=== PATIENT | female | born 1985 | race African-American/Black ===

== ENCOUNTER 2020-07-26 20:39 | Emergency (ER) | payer OTHER, SELFPAY ==
[2020-07-26 20:51] VITALS: BP 110/66; PULSE 71; RESP 18; TEMP 36.6; O2SAT 97; BMI 23.2
--- NOTE | 2020-07-26 20:58 | ED.PREGNANCY ---
HPI - General Chief complaint: Vaginal Bleeding Stated complaint: 5wks and spotting Time Seen by Provider: 07/26/20 20:52 Source: patient Mode of arrival: Ambulatory Limitations: no limitations History of Present Illness HPI Narrative: Patient is a 34-year-old female presenting with vaginal spotting at about 5 weeks. She has her last menstrual cycle was June 17 this evening she noted some bright red spotting she has needed to change a panty liner but it has not been significantly saturated. She has no cramping denies any nausea is only complaining of fatigue. No prior issues with she has had previous abortions. MD Complaint: vaginal bleeding Date of Last Menstrual Period: 06/17/20 Related Data Allergies Allergy/AdvReac Type Severity Reaction Status Date / Time No Known Drug Allergies Allergy Verified 07/26/20 20:57 Review of Systems Review of Systems Narrative: GENERAL: Denies chills, fatigue, malaise, fever, sweats, travel HEENT: Denies sinus pain, ear pain, sore throat, difficulty swallowing, neck pain RESPIRATORY: Denies dyspnea, cough, wheezing, hemoptysis, sputum. CARDIOVASCULAR: Denies chest pain, palpitations, orthopnea, edema GASTROINTESTINAL: Denies nausea, vomiting, abdominal pain, diarrhea, constipation, melena. : Denies dysuria, frequency, incontinence, hematuria, urinary retention, flank pain. COURT ADVOCATE: see HPI MUSCULOSKELETAL: Denies weakness, joint pain, or bony pain SKIN: No rash, no erythema, no pruritus NEUROLOGIC: Denies weakness, dizziness, headache, numbness, change in speech, confusion PSYCHIATRIC: No concerning psychosocial issues. 12 point review of systems is negative except for those stated above and HPI PMFSH - Past Medical History Medical history: Reports no medical history Date of Last Menstrual Period: 06/17/20 Exam Initial Vital Signs Initial Vital Signs: Vital Signs Temperature 97.8 F 07/26/20 20:51 Pulse Rate 71 07/26/20 20:51 Respiratory Rate 18 07/26/20 20:51 Blood Pressure 110/66 07/26/20 20:51 Pulse Oximetry 97 07/26/20 20:51 GENERAL: Well-appearing, well-nourished and in no acute distress. HEENT: Head atraumatic,EOMI, pupils reactive, face symmetric, moist mucous membranes CARDIOVASCULAR: Regular rate and rhythm without murmurs, rubs or gallops. RESPIRATORY: Breath sounds equal bilaterally, no wheezes rales or rhonchi. ABDOMEN: Soft, nontender. Normoactive bowel sounds all 4 quadrants. No guarding or rebound. : No CVA tenderness EXTREMITIES: Normal range of motion, no clubbing or edema. Neurovascularly intact NEUROLOGICAL: Alert and oriented x4.Normal gait and speech. SKIN: Warm, dry, no laceration, no petechiae, no rashes or lesions. Course Orders Ordered: ED Orders 07/26/20 20:48 Ictotest Urine Stat Urine Microscopic Stat 07/26/20 20:50 Complete Blood Count AUTO DIFF Stat Comprehensive Metabolic Panel Stat HCG Quantitative /Beta subunit Stat 07/26/20 20:59 US pelvic complete Stat Vital Signs Vital signs: Vital Signs - 8 hr 07/26/20 20:51 07/26/20 22:16 Temperature 97.8 F Pulse Rate 71 58 L Respiratory Rate 18 15 Blood Pressure 110/66 98/65 Pulse Oximetry 97 96 MDM - OB/Uterine Contractions Lab Data Attestation: I reviewed the patient's lab results. Result diagrams: 07/26/20 20:50 07/26/20 20:50 Labs: Lab Results 07/26/20 07/26/20 07/26/20 Range/Units 20:48 20:50 20:50 WBC 7.3 (4.5-11.0) X10^3/uL RBC 4.16 (4.0-5.2) X10^6/uL Hgb 13.2 (12.0-16.0) g/dL Hct 38.5 (36-46) % MCV 92.6 (80-100) fL MCH 31.7 (26-34) PG MCHC 34.2 (30-36) % RDW 12.5 (11.6-14.8) % Plt Count 238 (150-400) X10^3/uL Neut % (Auto) 44.4 L (50-75) % Lymph % (Auto) 40.4 H (25-40) % [place] % (Auto) 6.3 (3-14) % Eos % (Auto) 8.1 H (2-4) % Baso % (Auto) 0.8 (0-2) % Neut # (Auto) 3200 (8346-6090) /uL Lymph # (Auto) 2900 (6689-0831) /uL [place] # (Auto) 500 (0-900) /uL Eos # (Auto) 600 H (0-450) /uL Baso # (Auto) 100 (0-100) /uL Sodium 138 (137-145) mmol/L Potassium 3.8 (3.4-5.1) mmol/L Chloride 108 H (98-107) mmol/L Carbon Dioxide 24 (22-32) mmol/L BUN 17 (7-17) mg/dL Creatinine 1.17 H (0.52-1.04) mg/dL Estimated GFR 52.3 L (>60) mL/min BUN/Creatinine Ratio 14.5 (6-22) Glucose 93 (70-100) mg/dL Calcium 9.4 (8.4-10.2) mg/dL Total Bilirubin 0.3 (0.2-1.3) mg/dL AST 19 (14-36) IU/L ALT 15 (<35) IU/L Alkaline Phosphatase 46 (38-126) U/L Total Protein 7.4 (6.3-8.2) g/dL Albumin 4.5 (3.5-5.0) g/dL Globulin 2.9 (1.7-4.1) g/dL Albumin/Globulin Ratio 1.6 (1.0-2.8) HCG, Quant 267.5 mIU/mL Ur Bilirubin Confirm Negative (Negative) Urine RBC 0-1/hpf (0-5/HPF) Urine WBC 1-5/hpf (0-5/HPF) Ur Squamous Epith Cells 1-5 /hpf (0-5/HPF) Urine Bacteria Few (2-10) H (None) Ur Culture Indicated? Cult not indicated Point of Care Testing Test Results Positive Urine Dip Bedside Urine Glucose Negative Bedside Urine Bilirubin + 1 Bedside Urine Ketone - Negative Urine Specific [place] 1.030 Bedside Urine Occult Blood +++ Bedside Urine pH 6.0 Bedside Urine Protein - Negative Bedside Urine Urobilinogen - Negative Bedside Urine Nitrite - Negative Bedside Urine Leukocytes - Negative Esterase Imaging Data US - OB: Radiologist's Impression: ROCEDURE: US PELVIC COMPLETE INDICATIONS: SPOTTING; 5 WEEKS TECHNIQUE: Real-time scanning was performed of the pelvic organs, with image documentation. Additional endovaginal scanning was necessary due to incomplete visualization of the adnexal and endometrial structures by transabdominal scanning. COMPARISON: None. FINDINGS: Uterus: Uterus is normal in size at 9.9 x 5.5 x 4.8 cm. No fibroids seen. The endometrium measures 10 mm in combined thickness. No intrauterine gestation seen. Ovaries: Within normal limits. No cystic lesion seen. Right ovary measures 3.3 x 1.7 x 1.6 cm. Left ovary measures 2.7 x 2.2 x 1.1 cm. Other: No pathologic free abdominal or pelvic fluid. IMPRESSION: 1. of uncertain location. No intrauterine gestational sac. -Recommend trending serum beta HCG. If clinically indicated follow-up pelvic ultrasound. 2. Ovaries appear normal. No cystic lesion. Dictated by: Madhu Camarillo M.D. on 07/26/2020 at 21:58 MDM Narrative Medical decision making narrative: The patient has no pain at this time. HCG is low at 267 with ultrasound that does not confirm IUP. Concern for probable miscarriage. Low concern for ectopic however I did discuss this with her at. She has already established some care with OBGYN in [place] in she has had blood work with him. At this time I recommend she call them tomorrow to schedule follow-up this week. Discharge Plan Departure Patient Disposition: Home Clinical Impression: Threatened Instructions: Threatened Miscarriage Activity Restrictions/Additional Instructions: QHB=416.5 *You have been diagnosed with threatened miscarriage *What to do: At this time ultrasound does not show an hCG level is concerning low. You need to have HCG rechecked in 48 hours by your OBGYN, along with follow-up ultrasound *Continue to take medications as directed *Follow up with your primary care provider in 2-3 days *Return to ER if you should have increasing vaginal bleeding more than a 2 super pads an hour, increased pain, dizziness, passing out or any new, worsening or concerning symptoms
[2020-07-26 21:11] LABS: Add Manual Diff / Slide Review NO; Basophils Absolute Auto 100 /uL (0-100); Basophils Percent Auto 0.8 % (0-2); Eosinophils Absolute Auto 600 /uL (0-450); Eosinophils Percent Auto 8.1 % (2-4); Hematocrit 38.5 % (36-46); Hemoglobin 13.2 g/dL (12.0-16.0); Lymphocytes Absolute Auto 2900 /uL (1100-4500); Lymphocytes Percent Auto 40.4 % (25-40); Mean Corpuscular HGB Conc 34.2 % (30-36); Mean Corpuscular Hemoglobin 31.7 PG (26-34); Mean Corpuscular Volume 92.6 fL (80-100); Monocytes Absolute Auto 500 /uL (0-900); Monocytes Percent Auto 6.3 % (3-14); Neutrophils Absolute Auto 3200 /uL (1500-7000); Neutrophils Percent Auto 44.4 % (50-75); Platelet Count 238 X10^3/uL (150-400); Red Blood Cell Count 4.16 X10^6/uL (4.0-5.2); Red Cell Distribution Width 12.5 % (11.6-14.8); White Blood Cell Count 7.3 X10^3/uL (4.5-11.0)
[2020-07-26 21:12] LABS: Alanine Aminotransferase 15 IU/L (<35); Albumin 4.5 g/dL (3.5-5.0); Albumin Globulin Ratio 1.6 (1.0-2.8); Alkaline Phosphatase 46 U/L (38-126); Aspartate Aminotransferase 19 IU/L (14-36); BUN Creatinine Ratio 14.5 (6-22); Bilirubin Total 0.3 mg/dL (0.2-1.3); Blood Urea Nitrogen 17 mg/dL (7-17); Calcium 9.4 mg/dL (8.4-10.2); Carbon Dioxide 24 mmol/L (22-32); Chloride 108 mmol/L (98-107); Estimated Glomerular Filt Rate 52.3 mL/min (>60); Globulin 2.9 g/dL (1.7-4.1); Glucose 93 mg/dL (70-100); HEMOLYSIS < 15 (0-50); Potassium 3.8 mmol/L (3.4-5.1); Sodium 138 mmol/L (137-145); Total Protein 7.4 g/dL (6.3-8.2)
[2020-07-26 21:23] LABS: Bacteria Urine Few (2-10); Culture Indicated Urine Cult Not Indicated; Ictotest Urine Negative (Negative); RBC Urine 0-1/HPF (0-5/HPF); Squamous Epithelial Cell Urine 1-5 /HPF (0-5/HPF); WBC Urine 1-5/HPF (0-5/HPF)
[2020-07-26 21:29] LABS: HCG Quantitative /Beta subunit 267.5 mIU/mL
[2020-07-26 22:16] VITALS: BP 98/65; PULSE 58; RESP 15; O2SAT 96
== END 2020-07-26 22:17 | disposition home or self-care (01) ==
PROVIDERS: Emergency Provider Emergency Medicine
DX: O20.0 Threatened abortion (principal); Z3A.01 Less than 8 weeks gestation of pregnancy
CPT/HCPCS: 36415; 76830; 76856; 80053; 81003; 81015; 81025; 84702; 85025; 99283; 99284